=== PATIENT | female | born 1985 | race African-American/Black ===

== ENCOUNTER 2020-07-09 15:51 | Inpatient (IN) | payer OTHER ==
[~2020-07-09] VITALS: Ht 134.6 cm; Wt 49.9 kg
[2020-07-09 15:53] VITALS: BP 122/83
[2020-07-09] MEDS ORDERED: ACID CONTROLLER20 MG PER TUBE (16:32)
[2020-07-09] MEDS ORDERED: PHENOBARBITAL64.8 MG PER TUBE (16:33)
[2020-07-09] MEDS ORDERED: ACETAMINOP160 MG/5 M PER TUBE (16:34)
[2020-07-09] MEDS ORDERED: LORAZEPAM 2MG TA2 M1 PER TUBE (16:36)
[2020-07-09] MEDS ORDERED: OXYBUTYNIN 5 MG5 M2 PER TUBE (16:36)
[2020-07-09] MEDS ORDERED: KEPPRA100 MG/1 M PER TUBE (16:37)
[2020-07-09] MEDS ORDERED: LOPRESSOR50 MG PER TUBE (16:38)
[2020-07-09 19:47] LABS: ABSOLUTE NEUTROPHILS 8.1 thou/uL (1.4-8.2); BASOPHILS 0.3 % (0.0-2.0); HEMATOCRIT 35.5 % (37.0-47.0); HEMOGLOBIN 11.3 gm/dL (12.0-15.0); LYMPHOCYTES 14.3 % (24.0-44.0); MCH 26.5 pg (26.0-34.0); MCV 83.1 fL (80.0-100.0); MONOCYTES 6.5 % (1.0-8.0); PLATELET COUNT 228 thou/uL (150-400); POLYS 77.9 % (36.0-66.0); RBC 4.27 mil/uL (4.20-5.00); RDW 17.6 % (10.5-14.5); WBC 10.4 thou/uL (4.0-11.0)
[2020-07-09 20:02] LABS: CALCIUM 9.7 mg/dL (8.5-10.1); CREATININE 0.6 mg/dL (0.6-1.0)
[2020-07-09 20:03] LABS: POTASSIUM 2.1 mmol/L (3.5-5.1)
[2020-07-09 20:23] VITALS: BP 122/83
[2020-07-09 20:30] VITALS: BP 122/83
[2020-07-09 21:34] VITALS: BP 136/96
[2020-07-10 00:15] VITALS: BP 127/89
[2020-07-10] MEDS ORDERED: PERCOCET 5-3251 EACH PER TUBE (01:50)
[2020-07-10] MEDS ORDERED: MIRALAX119 GM PER TUBE (01:53)
[2020-07-10] MEDS ORDERED: JEVITY 1.2 CAL237 ML PER TUBE (01:55)
[2020-07-10 04:45] VITALS: BP 121/77
[2020-07-10 07:22] LABS: CALCIUM 9.5 mg/dL (8.5-10.1); CREATININE 0.5 mg/dL (0.6-1.0); MAGNESIUM 2.3 mg/dL (1.8-2.4)
[2020-07-10 07:39] LABS: POTASSIUM 3.3 mmol/L (3.5-5.1)
[2020-07-10 08:18] VITALS: BP 145/86
--- NOTE | 2020-07-10 12:50 | NUR ---
TO IR TODAY FOR PEG TUBE REPLACEMENT. BACK TO UNIT AT 1200, WAIT 6 HOURS TO USE TUBE.
--- NOTE | 2020-07-10 13:40 | NUR ---
AFTER READING PROCEDURE REPORT, STATES THE J-TUBE CAN BE USED IMMEDIATELY. JEVITY 1.5 ( WE DO NOT HAVE 1.2) STARTED AT 1330 AT 30 CC/HR. J-TUBE PATENT AND FLUSHES EASILY.
[2020-07-10] MEDS ORDERED: POTASSIUM20 MEQ/15 PER TUBE (14:30)
--- NOTE | 2020-07-10 16:10 | NUR ---
SPOKE WITH [facility], THEY DO NOT TAKE TRANSFERS OVER WEEKEND. WILL ARRANGE DC ON SUNDAY.
[2020-07-10 16:35] VITALS: BP 132/100
[2020-07-10 20:30] VITALS: BP 115/59
--- NOTE | 2020-07-11 02:29 | NUR ---
ASSUMED CARE OF PATIENT AT 1899. RECEIVED CRITICAL RESULTS FOR POTASSIUM OF 2.7 AT 2114. NOTIFIED [employer]IC WORKER FITTER AND RECEIVED ORDER FOR ONETIME 20 MEQ POTASSIUM IVPB. SUCTIONED SMALL AMOUNTS OF WHITE, FROTHY SECRETIONS FROM TRACH THROUGH OUT NOC. J-TUBE REMAINS PATENT WITH CONTINUOUS TUBE FEEING GOING AT 30 ML/H. WILL CONTINUE TO MONITOR.
[2020-07-11 04:45] VITALS: BP 92/51
[2020-07-11 05:19] VITALS: BP 129/83
--- NOTE | 2020-07-11 07:54 | NUR ---
ASSUMED CARE OF PT AT SHIFT CHANGE, EYES OPEN, DOESNT NOD IN ACKNOWLEDMENT, GOT MOUTH SWABS FOR HER, SOME RESISTANCE, WILL GET LIP MOISTURIZER. NOTED NO 'LYTE PROTOCOL CONTACTED PHYSICIAN FOR K+ 3.1. WILL MONITOR FREQENTLY, CONTRACTED, OPENED BLINDS, SEE SEPARATE INTERVENTIONS FOR ASSESSMENTS, APPEARS SOME CRACKLES WITH AUSCULTATION, HAS FEMALE CATHETER, PLACED TOWEL BETWEEN HER STOMACH AND ALL LINES.
[2020-07-11 08:00] VITALS: BP 111/62
--- NOTE | 2020-07-11 10:13 | NUR ---
REC WORD [facility] WOULD REC PT BACK WITH TRANSPORTATION TO BE ARRANGED BY [facility] AND SHAMA RN, WILL CALL AND FAX NUMBERS ON FORM HOUSE SUPV PROVIDED. WILL ALSO CALL FAMILY MEMBER WHO CALLED AND SAID THEY WOULD COME UP SOMETIME TODAY. WILL CONTINUE TO MONITOR
[2020-07-11 11:40] VITALS: BP 123/72
== END 2020-07-11 14:41 | disposition home or self-care (01) | DRG 393 ==
LOC: ER 15:51 → 2N 18:23 → EROBS 18:23 → 2N 20:45
PROVIDERS: Emergency Medicine; Nurse Practitioner Family; ADMIT Hospitalist; ATTEND Hospitalist
PROC: 5A1945Z Respiratory Ventilation, 24-96 Consecutive Hours (ICD-10-PCS; principal; 2020-07-09)
PROC: 0D2DXUZ Change Feeding Device in Lower Intestinal Tract, External Approach (ICD-10-PCS; 2020-07-10)
DX: K94.13 Enterostomy malfunction (principal); R53.2 Functional quadriplegia; J96.11 Chronic respiratory failure with hypoxia; E87.3 Alkalosis; Z99.11 Dependence on respirator [ventilator] status; E87.1 Hypo-osmolality and hyponatremia; G80.9 Cerebral palsy, unspecified; E87.6 Hypokalemia; Y73.8 Miscellaneous gastroenterology and urology devices associated with adverse incidents, not elsewhere classified; E87.8 Other disorders of electrolyte and fluid balance, not elsewhere classified; G40.909 Epilepsy, unspecified, not intractable, without status epilepticus; Z20.828 Contact with and (suspected) exposure to other viral communicable diseases; Y82.8 Other medical devices associated with adverse incidents; Y92.89 Other specified places as the place of occurrence of the external cause; Z79.899 Other long term (current) drug therapy
CPT/HCPCS: 10194